=== PATIENT | female | born 1935 | race Caucasian/White ===

== ENCOUNTER → 2018-09-01 | Outpatient (CLI) | payer MEDICARE, OTHER ==
[~2018-09-01] MED LIST: ACEDIPPM PO; AMLO5 PO; ASPI81EC PO; ATOR10 PO; CALCAVITD PO; CALCIUM; CARV25 PO; CARV6.25 PO; CARVEDILOL; CEPH500 PO; CHOL10002 PO; CIPR250 PO; FLUSAL2505 IH; FOLI1 PO; FOLI400 PO; FURO20 PO; LEFL20 PO; LISI20 PO; LOSA25 PO; LOVA20 PO; MAGGLU250 PO; MAGNESIUM; MAGNESIUM PO; MAGOXI400 PO; METF500 PO; METF500C PO; METR250 PO; METTREX2.5 PO; MULVITB&C PO; MULVITMIND PO; MULVITMINF PO; NEBI10 PO; NEBI5 PO; OMEP20ER PO; OSEL75CA PO; PROBIOTIC; TAMS.4ER PO; VIT D3
== END ==
LOC: PLD 07:43 → LAB SHORT 07:43
DX: D48.5 Neoplasm of uncertain behavior of skin (principal)
CPT/HCPCS: 88304

== ENCOUNTER → 2019-02-03 | Outpatient (CLI) | payer MEDICARE, OTHER | END | disposition home or self-care (01) | LOC: LAB SHORT 10:10 → LAB 10:10 | DX: L08.0 Pyoderma (principal) | CPT/HCPCS: 87070; 87077; 87147; 87186; 87205 ==

== ENCOUNTER → 2019-07-12 | Outpatient (CLI) | payer MEDICARE, OTHER | END | disposition home or self-care (01) | LOC: LAB SHORT 13:24 → PLD 13:24 | DX: C44.311 Basal cell carcinoma of skin of nose (principal) | CPT/HCPCS: 88305 ==